=== PATIENT | male | born 2000 | race Caucasian/White ===

== ENCOUNTER 2019-05-28 16:04 | Emergency (ER) | payer SELFPAY ==
[~2019-05-28] VITALS: Ht 175.3 cm; Wt 82.9 kg
[~2019-05-28 16:04] MED LIST: CEPH-443 PO; IBUP800T48 PO; SULF1TAB31 PO; TR1B60 TOP
[2019-05-28 16:11] VITALS: BP 162/87; PULSE 63; RESP 18; Ht 175.3 cm; Wt 82.9 kg
== END 2019-05-28 16:59 | disposition home or self-care (01) ==
LOC: FTE 16:04
DX: L30.9 Dermatitis, unspecified (principal); F17.210 Nicotine dependence, cigarettes, uncomplicated
CPT/HCPCS: 99283

== ENCOUNTER 2019-05-30 08:07 | Emergency (ER) | payer MEDICAID ==
[~2019-05-30] VITALS: Ht 170.2 cm; Wt 84.1 kg
[2019-05-30 08:11] VITALS: BP 134/78; PULSE 73; RESP 18; Ht 170.2 cm; Wt 84.1 kg
[2019-05-30] MEDS ORDERED: CEFTRIAXONE 1 GM INJ IM ONE (09:00)
[2019-05-30] MEDS ORDERED: LIDOCAINE 1% (MDV) 20 ML INJ SC ONE (09:00)
[2019-05-30] MEDS ORDERED: IBUPROFEN 800 MG TAB PO ONE (09:00)
== END 2019-05-30 09:04 | disposition home or self-care (01) ==
LOC: FTE 08:07
DX: H66.003 Acute suppurative otitis media without spontaneous rupture of ear drum, bilateral (principal); L03.211 Cellulitis of face; F17.210 Nicotine dependence, cigarettes, uncomplicated
CPT/HCPCS: 96372; J0696; Z7502; Z7610